=== PATIENT | female | born 1960 | race Caucasian/White ===

== ENCOUNTER → 2019-07-07 | Outpatient (CLI) | payer OTHER ==
[~2019-07-07] MED LIST: ALEVE220 MG PO; ANTIHISTAMINE25 MG PO; COLACE100 MG PO; DOXYCYCLINE 10100 MG; ESTRADIOL 1 MG T1 M1 PO; ESTROGEN PO; FISH OIL 1,001000 M2 PO; FLEXERIL PO; GLUCOSAMINE &1 EAC1 PO; HAIR, SKIN & N1 EAC1 PO; HYDROCODONE-AP1 EAC6 PO; IBUPROFEN 200200 M1 PO; IBUPROFEN 400400 M2 PO; IBUPROFEN 600600 M1 PO; LOPRESSOR 12.12.5 MG PO; MILK OF MA2400 MG/10 PO; MUCINEX600 MG PO; NAPROXEN PO; NATURAL HORMONE IM; NORCO 5-325 TA1 EACH PO; OXYCONTIN10 M1 PO; PERCOCET 10-321 EACH PO; PHENERGAN 25 MG25 M1 PO; PROGESTERONE PO; PROVERA2.5 MG PO; TUMS PO; VITAMIN B-625 MG PO; VITAMIN D31000 UNI2 PO; VITAMIN D3400 UNIT PO; VITAMIN E400 UNIT PO; VITAMINC500 PO; XARELTO15 MG PO
== END ==
LOC: MRI 10:26 → RAD 14:38 → MRI 15:27
DX: R05 Cough (principal); M50.90 Cervical disc disorder, unspecified, unspecified cervical region; F41.9 Anxiety disorder, unspecified; I10 Essential (primary) hypertension

== ENCOUNTER 2021-04-21 14:22 | Emergency (ER) | payer OTHER ==
[~2021-04-21] VITALS: Ht 170.2 cm; Wt 68.0 kg
[2021-04-21 15:05] LABS: ANION GAP 9 mmol/L (7-16); BUN 9 mg/dL (7-18); CALCIUM 9.2 mg/dL (8.5-10.1); CHLORIDE 105 mmol/L (98-107); CO2 26 mmol/L (21-32); CREATININE 0.8 mg/dL (0.6-1.0); GLUCOSE 81 mg/dL (74-106); SODIUM 140 mmol/L (136-145)
[2021-04-21 15:08] LABS: ABSOLUTE NEUTROPHILS 5.7 thou/uL (1.4-8.2); HEMATOCRIT 41.9 % (37.0-47.0); HEMOGLOBIN 13.6 gm/dL (12.0-15.0); LYMPHOCYTES 24.4 % (24.0-44.0); MCH 30.8 pg (26.0-34.0); MCHC 32.4 g/dL (28.0-37.0); MCV 95.1 fL (80.0-100.0); PLATELET COUNT 270 thou/uL (150-400); POLYS 64.6 % (36.0-66.0); RBC 4.41 mil/uL (4.20-5.00); RDW 13.8 % (10.5-14.5); WBC 8.8 thou/uL (4.0-11.0)
[2021-04-21 15:51] LABS: BE(vivo) 2.8 mmol/L (-2 to +3); HCO3 27.4 mmol/L (22.0-26.0); PCO2 42.5 mmHg (35.0-45.0); PO2 65.9 mmHg (80.0-100.0); pH 7.428 (7.360-7.450); sO2 93.5 % (92.0-98.0)
[2021-04-21 16:27] LABS: URINE BILIRUBIN NEGATIVE (Negative); URINE BLOOD TRACE (Negative); URINE CLARITY CLEAR; URINE COLOR YELLOW; URINE GLUCOSE-RANDOM* NEGATIVE (Negative); URINE KETONES NEGATIVE (Negative); URINE LEUKOCYTES-REFLEX NEGATIVE (Negative); URINE NITRITE-REFLEX NEGATIVE (Negative); URINE PROTEIN (DIPSTICK) NEGATIVE (Negative); URINE SPECIFIC GRAVITY 1.025 (1.005-1.035); URINE UROBILINOGEN 0.2 E.U./dl (0.2-1.0)
[2021-04-21] MEDS ORDERED: PREDNISONE 20 M20 MG PO (18:55)
[2021-04-21 19:06] VITALS: BP 136/85
--- NOTE | 2021-04-22 10:59 | EKG ---
[place] [address] [facility] [place] [address] ELECTROCARDIOGRAM REPORT Name: BROWNORLANDO [id number] Admission: 04/21/21 Attend Phys: Discharge: 04/21/21 Date of : 64 Report #: [id number] [facility] ED Test Date: 2021-04-21 Test Time: 14:29:15 Pat Name: ORLANDO BROWN Department: Room: Gender: F Web Content Writer: VANESSA : 1960 Requested By: Bobby Carbajal Order Number: [id number] MD: Shelton Dawson Measurements Intervals [place] Rate: 80 P: 67 MT: 132 QRS: 57 QRSD: 77 T: 59 QT: 365 QTc: 421 Interpretive Statements Sinus rhythm Probable left atrial enlargement Compared to ECG 06/29/2015 19:22:39 ST (T wave) deviation no longer present Electronically Signed On 04-22-2021 10:58:59 [employer]PERVIS[employer] by Shelton Dawson [email or web address] <ELECTRONICALLY SIGNED> By: Shelton Dawson MD 04/22/21 1058 1429 1429 Shelton Dawson MD /DARLENE
== END 2021-04-21 19:07 | disposition home or self-care (01) ==
LOC: ER 14:22
PROVIDERS: Student in an Organized Health Care Education/Training Program
DX: R07.89 Other chest pain (principal); R06.00 Dyspnea, unspecified; K21.9 Gastro-esophageal reflux disease without esophagitis; Z79.899 Other long term (current) drug therapy; Z87.891 Personal history of nicotine dependence; Z91.030 Bee allergy status; Z88.5 Allergy status to narcotic agent